=== PATIENT | female | born 1930 | race Caucasian/White ===

== ENCOUNTER 2016-06-10 17:34 | Emergency (ER) | payer MEDICARE ==
[~2016-06-10] VITALS: Ht 160 cm; Wt 79.4 kg
[2016-06-10] MEDS ORDERED: HYDROCODONE/APAP 10-325 MG TABLET PO ONE (19:00)
--- NOTE | 2016-06-10 19:00 | NUR ---
CARE ENDORSED BY DAYSHIFT NURSE, PT FOUND SITTING IN CHAIR, ALERT, ORIENTED X 4, NO RESP DISTRESS NOTED OR REPORTED UPON ASSESSMENT... WILL MONITOR FOR SAFETY, PAIN, AND COMFORT...
--- NOTE | 2016-06-10 19:15 | NUR ---
head cd reactor operator called to advise pt refusing ct of head, face, and sternum... pt returned to floor...
[2016-06-10] MEDS ORDERED: HYDROCODONE/APAP 10-325 MG TABLET ONE (19:20)
--- NOTE | 2016-06-10 20:00 | NUR ---
pt now requesting to have scan done, pt advised to get in gown to completed scan, pt agreed...
--- NOTE | 2016-06-10 21:31 | NUR ---
Patient discharged to home in stable conditon. Written and verbal after care instructions given. Patient verbalizes understanding of instructions. pt walked out of ER unassisted with and belongings at side..
[2016-06-10 21:32] VITALS: BP 138/99
== END 2016-06-10 21:33 | disposition home or self-care (01) ==
LOC: ER 17:37
DX: S62.91XA Unspecified fracture of right hand, initial encounter for closed fracture (principal); S00.83XA Contusion of other part of head, initial encounter; I10 Essential (primary) hypertension; F03.90 Unspecified dementia, unspecified severity, without behavioral disturbance, psychotic disturbance, mood disturbance, and anxiety; R51 Headache; W18.30XA Fall on same level, unspecified, initial encounter; Y93.89 Activity, other specified; Y99.8 Other external cause status; Y92.89 Other specified places as the place of occurrence of the external cause
CPT/HCPCS: 70450; 70486; 71010; 73130; A4663